=== PATIENT | male | born 1950 | race Caucasian/White ===

== ENCOUNTER 2021-03-24 07:15 | Emergency (ER) | payer MEDICARE ==
[~2021-03-24] VITALS: Ht 177.8 cm; Wt 87.6 kg
[2021-03-24 07:18] VITALS: BP 185/119
[2021-03-24] MEDS ORDERED: LIDOCAINE 2% 20 ML VIAL. ONE (07:30)
[2021-03-24] MEDS ORDERED: LIDOCAINE 2% 20 ML VIAL. IJ ONE (07:45)
[2021-03-24] MEDS ORDERED: CEPH500T PO (08:00)
[2021-03-24] MEDS ORDERED: CEPHALEXIN 250 MG CAPSULE PO ONE (08:00)
--- NOTE | 2021-03-24 08:01 | PHYS DOC ---
Past History Past Medical History: Hypertension, Other Additional Past Medical Histor: inguinal hernia, hiatal hernia, esophageal stricture Past Surgical History: Other Additional Past Surgical Histo: stent x2 Alcohol Use: None Adult General Chief Complaint Chief Complaint: LACERATION/AVULSION HPI HPI Patient is a 70-year-old male presenting for fishhook injury. Onset of injury was just prior to arrival. Patient stuck a fishhook Bober on the ventral portion of the distal pad of his right middle finger. Pain is tolerable. There are no changes in motor or sensory function. Patient reports trying to pull out fishhook on his own but due to barbed-tip, this was not possible. Patient r eports being on 81 mg aspirin only no other blood thinners. Review of Systems Review of Systems Fourteen body systems of review of systems have been reviewed. See HPI for pertinent positives and negative responses, other patel all other systems are negative, non-pertinent or non-contributory Current Medications Current Medications Current Medications Medications (Trade) Dose Ordered Sig/Thalia Start Time Stop Time Status Last Admin Dose Admin Lidocaine HCl 20 ml 1X ONCE 03/24/21 07:45 03/24/21 07:48 DC Allergies Allergies Allergies Coded Allergies Type Severity Reaction Last Updated Verified oxycodone Allergy Unknown 03/24/21 Yes Physical Exam Physical Exam Constitutional: Well developed, well nourished, no acute distress, non-toxic appearance. HENT: Normocephalic, atraumatic, bilateral external ears normal, oropharynx moist, no oral exudates, nose normal. Eyes: PERRLA, EOMI, conjunctiva normal, no discharge. Neck: Normal range of motion, no tenderness, supple, no stridor. Cardiovascular: Heart rate regular per monitor Lungs & Thorax: No respiratory distress or accessory muscle use, bilateral chest rise Abdomen: Abdomen soft, non-tender, bowel sounds present in all quadrants, no gua rding or rebound, nonacute abdomen. Skin: Warm, dry, no erythema, no rash. Yellow fishhook with x1 barbed-tip embedded in distal pad of ventral portion of right middle finger Back: No tenderness, no CVA tenderness. Extremities: No tenderness, no cyanosis, no clubbing, ROM intact, no edema. Neurologic: Alert and oriented X 3, grossly normal motor & sensory function, no focal deficits noted. Psychologic: Affect normal, judgement normal, mood normal. Current Patient Data Vital Signs Vital Signs Date Time Temp Pulse Resp B/P (MAP) Pulse Ox O2 Delivery O2 Flow Rate FiO2 03/24/21 07:18 98.0 85 16 185/119 (141) 97 Room Air EKG EKG [] Radiology/Procedures Radiology/Procedures [] Heart Score C/O Chest Pain: No HEART Score for Chest Pain: HEART Score for Chest Pain Response (Comments) Value History Slighlty/Non-Suspicious 0 Age > 65 2 Risk Factors >3 Risk Factors or Hx CAD 2 Total 4 Risk Factors: Risk Factors: DM, Current or recent (<one month) smoker, HTN, HLP, family history of CAD, obesity. Risk Scores: Risk Factors: DM, Current or recent (<one month) smoker, HTN, HLP, family history of CAD, obesity. Course & Med Decision Making Course & Med Decision Making Vitals stable. HPI and physical exam consistent with embedded johanny fishhook to right middle finger. Verbal consent obtained, finger numbed and fishhook retrieved without any reported nor observed complications. Hemostasis achieved with direct pressure Area cleaned and sterile pressure dressing applied with instructions for close PCP follow-up. Tetanus updated. Joint decision to start Keflex antibiotic for secondary infection prevention Strict return precautions were discussed with good understanding by patient, all questions and concerns addressed prior to ER departure Dragon Disclaimer Dragon Disclaimer This electronic medical record was generated, in whole or in part, using a voice recognition dictation system. Laceration/Wound Repair Laceration/Wound Repair : Wound Location: upper extremity Wound Explored: foreign body removed Progress Verbal consent obtained. Entire right finger cleaned with alcohol prep pads. A total of 5 cc 2% lidocaine without epinephrine was administered with 2 cc administered at 10:00 and 2:00 positions of the finger and 1 cc administered into ventral portion of nerve sheath entrance of right middle finger. Barbed fishhook was pushed through skin to expose x1 johanny, this was removed using wire cutters and remaining piece of fishhook was extracted through entry hole. Entirety of fishhook was removed after exploration. Pressure was held achieving hemostasis of right middle finger entry and exit wounds. After reevaluation there is no indication for suture repair or other type of invasive intervention. Patient tolerated procedure well without any reported nor observed complications Departure Departure: Impression: Primary Impression: Fish hook injury of right middle finger Disposition: HOME / SELF CARE / HOMELESS Condition: IMPROVED Referrals: GRADY LIANG DO (PCP) Additional Instructions: As discussed prior to your departure, you had a fishhook stuck in your finger. Your vital signs and physical examination was unremarkable. You tolerated the procedure well to have this removed and there were no observed nor reported complications with this. As disclosed, it is important to continue good supportive care practices and follow-up with your primary care physician for repeat evaluation. Your tetanus shot was updated and you were started on antibiotics to lower the risk of a potential secondary infection. As discussed, I advise you contact your primary care physician first thing on Friday to review ER visit today and discuss need for close follow-up this upcoming week. If any concerning signs or symptoms present prior to outpatient follow-up please do not hesitate to come back for repeat evaluation. It was a pleasure to take care of you and I wish you the best going forward Scripts Cephalexin (CEPHALEXIN) 500 Mg Tablet 2 TAB PO BID for INFECTION for 5 Days, #18 TAB Prov: JAHAIRA COBURN DO 03/24/21 JAHAIRA COBURN DO March 24, 2021 08:01
[2021-03-24] MEDS ORDERED: DIPH,PERTUSS(ACELL),TET VAC/PF 0.5 ML SYRINGE. VAX IM ONE (08:15)
== END 2021-03-24 08:13 | disposition home or self-care (01) ==
LOC: ER 07:29
DX: S61.242A Puncture wound with foreign body of right middle finger without damage to nail, initial encounter (principal); W22.8XXA Striking against or struck by other objects, initial encounter; Y93.89 Activity, other specified; Y92.89 Other specified places as the place of occurrence of the external cause; Y99.8 Other external cause status
CPT/HCPCS: 10120; 90471; 90715; 99285-25